=== PATIENT | female | born 1960 | race Caucasian/White ===

== ENCOUNTER → 2016-04-08 | Outpatient (CLI) | payer BC ==
--- NOTE | 2016-04-08 15:43 | BD ---
EXAMINATION TYPE: MG DEXA axial skeleton. DATE OF EXAM: 04/08/2016 8:28 AM COMPARISON: NONE CLINICAL HISTORY: Height: 62.5 IN Weight: 111 LBS FRAX RISK QUESTIONS: Alcohol (3 or more units per day): NO Family History (Parent hip fracture): NO Glucocorticoids (More than 3mos): NO (Ex: prednisone, prednisolone, methylprednisolone, dexamethasone, and hydrocortisone). History of Fracture in Adulthood: NO Secondary Osteoporosis: 1. Type 1 Diabetes: NO 2. Hyperthyroidism: NO 3. Menopause before 45: NO 4. Malnutrition: NO 5. Chronic liver disease: NO Rheumatoid Arthritis: NO Current Tobacco Use: YES RISK FACTORS HISTORY OF: Smoke tobacco: YES Diet low in dairy products/other sources of calcium: YES Postmenopausal woman: YES AGE 50 MEDICATIONS: Additional Medications: LOPRESSOR, EXAM MEASUREMENTS: Bone mineral densitometry was performed using the [employer] System. Bone mineral density as measured about the Lumbar spine is: ----- L1-L4(G/cm2): 1.056 T Score Values are as follows: ----- L2: -0.1 ----- L3: -0.7 ----- L4: -1.6 ----- L1-L4: -1.0 Bone mineral density BASELINE Bone mineral density about the R hip (g/cm2): 0.722 Bone mineral density about the L hip (g/cm2): 0.682 T Score values are as follows: -----R Neck: -2.3 -----L Neck: -2.6 -----R Intertrochanter: -2.0 -----L Intertrochanter: -2.1 Bone mineral density BASELINE IMPRESSION: Osteoporosis (T Score less than -2.5) as noted by T Score values at the There is increased fracture risk and therapy is usually indicated based on age. Re-Screen 1-2 years. LT HIP NOTE: T-SCORE=SD OF THE YOUNG ADULT MEAN.
--- NOTE | 2016-04-09 08:14 | MM ---
Reason for exam: screening (asymptomatic). Last mammogram was performed 7 years and 3 months ago. History: Patient had first child at age 32. Retro-pectoral saline implants in both breasts, July 2004. Benign ultrasound-guided core biopsy of the right breast, February 23, 2002. Core biopsy of the right breast. Took hormonal contraceptives for 13 years beginning at age 18. Physical Findings: A clinical breast exam by your physician is recommended on an annual basis and results should be correlated with mammographic findings. MG Screening Mammo Implant/CAD Bilateral CC, MLO, and ID view(s) were taken. Prior study comparison: December 28, 2008, bilateral diagnostic digital mammog. June 03, 2005, CAD bilateral diagnostic mammogram. The breast tissue is extremely dense which could obscure a lesion on mammography. No significant changes when compared with prior studies. ASSESSMENT: Benign, BI-RAD 2 RECOMMENDATION: Routine screening mammogram of both breasts in 1 year.
== END | disposition home or self-care (01) ==
LOC: RADMAMWWP 07:45
PROVIDERS: ATTEND Obstetrics & Gynecology
DX: Z12.31 Encounter for screening mammogram for malignant neoplasm of breast (principal); M81.0 Age-related osteoporosis without current pathological fracture; N95.1 Menopausal and female climacteric states; Z98.82 Breast implant status
CPT/HCPCS: 77080; G0202

== ENCOUNTER → 2020-01-30 | Outpatient (CLI) | payer BC ==
--- NOTE | 2020-01-30 16:26 | BD ---
EXAMINATION TYPE: Axial Bone Density DATE OF EXAM: 01/30/2020 COMPARISON: 04/08/2016 CLINICAL HISTORY: Height: 62 IN Weight: 102 LBS FRAX RISK QUESTIONS: Current Tobacco Use: YES RISK FACTORS HISTORY OF: Active: YES Diet low in dairy products/other sources of calcium: YES Postmenopausal woman: AGE 50 Take estrogen and/or progesterone medications: NOT NOW How long: TOOK CONTROL AGE [age] MEDICATIONS: Additional Medications: NONE EXAM MEASUREMENTS: Bone mineral densitometry was performed using the [employer] System. Bone mineral density as measured about the Lumbar spine is: ----- L1-L4(G/cm2): 0.993 T Score Values are as follows: ----- L2: -0.6 ----- L3: -1.1 ----- L4: -2.2 ----- L1-L4: -1.6 Bone mineral density has: Decreased -5.6% since study of: 04/08/2016 Bone mineral density about the R hip (g/cm2): 0.679 Bone mineral density about the L hip (g/cm2): 0.637 T Score values are as follows: -----R Neck: -2.6 -----L Neck: -2.9 -----R Total: -2.0 -----L Total: -2.4 Bone mineral density has: Decreased -6.4% since study of: 04/08/2016 IMPRESSION: Osteoporosis (T Score less than -2.5). There is increased fracture risk and therapy is usually indicated based on age. Re-Screen 1-2 years. NOTE: T-SCORE=SD OF THE YOUNG ADULT MEAN.
--- NOTE | 2020-02-01 08:46 | MM ---
Reason for exam: screening (asymptomatic). Last mammogram was performed 3 years and 10 months ago. History: Patient had first child at age 32. Family history of breast cancer in sister at age 63. Retro-pectoral saline implants in both breasts, July 2004. Benign ultrasound-guided core biopsy of the right breast, February 23, 2002. Core biopsy of the right breast. Took hormonal contraceptives for 13 years beginning at age 18. Taking estrogen for 1 month beginning at age 59. Physical Findings: A clinical breast exam by your physician is recommended on an annual basis and results should be correlated with mammographic findings. MG 3D Screen Mammo Imp/Cad Bilateral CC, MLO, and ID view(s) were taken. Prior study comparison: April 08, 2016, bilateral MG screening mammo implant/CAD. The breast tissue is extremely dense which could obscure a lesion on mammography. Retropectoral saline implants. No significant changes when compared with prior studies. ASSESSMENT: Negative, BI-RAD 1 RECOMMENDATION: Routine screening mammogram of both breasts in 1 year.
== END | disposition home or self-care (01) ==
LOC: RADMAMWWP 14:43
PROVIDERS: ATTEND Obstetrics & Gynecology
DX: Z12.31 Encounter for screening mammogram for malignant neoplasm of breast (principal); Z13.820 Encounter for screening for osteoporosis; M81.0 Age-related osteoporosis without current pathological fracture; Z98.82 Breast implant status
CPT/HCPCS: 77063; 77067; 77080

== ENCOUNTER → 2020-02-22 | Outpatient (CLI) | payer BC ==
[2020-02-22 14:22] LABS: Basophils # (A) 0.1 k/uL (0-0.2); Basophils % (A) 1 %; Eosinophils % (A) 1 %; HGB 15.8 gm/dL (11.4-16.0); Lymphocytes # (A) 1.6 k/uL (1.0-4.8); Lymphocytes % (A) 25 %; MCH 32.3 pg (25.0-35.0); MCHC 33.7 g/dL (31.0-37.0); MCV 95.7 fL (80.0-100.0); Mean Platelet Volume 7.6; Monocytes # (A) 0.3 k/uL (0-1.0); Monocytes % (A) 5 %; Neutrophils # (A) 4.3 k/uL (1.3-7.7); Neutrophils % (A) 67 %; Platelet Count 203 k/uL (150-450); RBC 4.91 m/uL (3.80-5.40); RDW 12.1 % (11.5-15.5); WBC 6.5 k/uL (3.8-10.6)
[2020-02-22 14:24] LABS: African American GFR (CKD) >90 (>60 ml/min/1.73 sqM); Anion Gap 7 mmol/L; Appearance,Urine Clear (Clear); Bilirubin,Urine Negative (Negative); Blood Urea Nitrogen 17 mg/dL (7-17); Blood,Urine Moderate (Negative); Calcium 9.7 mg/dL (8.4-10.2); Carbon Dioxide 29 mmol/L (22-30); Chloride 102 mmol/L (98-107); Color,Urine Yellow; Glucose 80 mg/dL (74-99); Glucose,Urine (UA) Negative (Negative); Ketones,Urine Negative (Negative); Leukocyte Esterase,Urine Negative (Negative); Mucus,Urine Many /hpf; Nitrite,Urine Negative (Negative); Non-African American GFR(CKD) >90 (>60 ml/min/1.73 sqM); PH, Urine 5.5 (5.0-8.0); Protein,Urine Trace (Negative); RBC,Urine 13 /hpf (0-5); Sodium 138 mmol/L (137-145); Squamous Epithelial Cell,Urine 3 /hpf (0-4); Urobilinogen,Urine <2.0 mg/dL (<2.0); WBC,Urine <1 /hpf (0-5)
== END | disposition home or self-care (01) ==
LOC: LABPAT 13:41
PROVIDERS: ATTEND Urology
DX: Z01.818 Encounter for other preprocedural examination (principal); N93.9 Abnormal uterine and vaginal bleeding, unspecified; R31.29 Other microscopic hematuria
CPT/HCPCS: 36415; 80048; 81001; 85025; 87086

== ENCOUNTER 2020-02-29 07:27 | Day surgery (SDC) | payer BC ==
[2020-02-27 14:30] VITALS: BMI 17.2
--- NOTE | 2020-02-28 14:04 | P.GSHP ---
History of Present Illness H&P Date: 02/28/20 59 yo female with javan on history, uds and physical exam. SHe had a monarc, tot, in 2004. It no longer works. She comes for repeat bns as urethra is hypermobile andshe has javan. We have chosen a lynx pvs to control the incontinence. The riks, complications including pain, erosin, infection, dyspareunia, imjury to adjacent organs have been explained understood and accepted. The MESH controversy has been discussed. - Constitutional Constitutional: Denies chills, Denies fever - EENT Eyes: denies blurred vision, denies pain Ears, nose, mouth and throat: Denies headache, Denies sore throat - Cardiovascular Cardiovascular: Denies chest pain, Denies shortness of breath - Respiratory Respiratory: Denies cough, Denies 7 - Gastrointestinal Gastrointestinal: Denies abdominal pain, Denies diarrhea, Denies nausea, Denies vomiting - Genitourinary (Female) Genitourinary: Denies dysuria, Denies hematuria - Genitourinary (Male) Genitourinary: Denies dysuria, Denies hematuria - Musculoskeletal Musculoskeletal: Denies myalgias - Integumentary Integumentary: Denies pruritus, Denies rash - Neurological Neurological: Denies numbness, Denies weakness - Psychiatric Psychiatric: Denies anxiety, Denies depression - Endocrine Endocrine: Denies fatigue, Denies weight change Past Medical History Past Medical History: No Reported History History of Any Multi-Drug Resistant Organisms: None Reported Past Surgical History: Bladder Surgery, Tonsillectomy Additional Past Surgical History / Comment(s): BLADDER SURGERY, BILATERAL BREAST AUGMENTATION, Past Anesthesia/Blood Transfusion Reactions: Family History of Problems w/ Anesthesia Additional Past Anesthesia/Blood Transfusion Reaction / Comment(s): SISTER HAS POST OP VOMITING Smoking Status: Current every day smoker - Past Family History Sister(s) Family Medical History: Cancer Additional Family Medical History / Comment(s): BREAST CANCER Medications and Allergies Home Medications Medication Instructions Recorded Confirmed Type Clobetasol Propionate [Temovate 1 applic TOPICAL MOTUWETHSA 02/27/20 02/27/20 History 0.05% Oint] Estradiol Cream [Estrace Cream 1 gm VAGINAL SUFR 02/27/20 02/27/20 History 0.01%] Allergies Allergy/AdvReac Type Severity Reaction Status Date / Time amoxicillin Allergy Rash/Hives Verified 02/27/20 14:11 bupropion [From Wellbutrin] Allergy Rash/Hives,SWELLING Verified 02/27/20 14:11 OF THROAT Surgical - Exam - General well developed, well nourished, no distress - Eyes PERRL - ENT normal mucosa, no hearing loss - Neck no masses, trachea midline - Respiratory normal expansion, normal respiratory effort - Cardiovascular Rhythm: regular - Abdomen Abdomen: soft, non tender - Genitourinary hypermobile urethra with javan normal external genitalia, normal perineum - Integumentary no rash, no growths - Neurologic normal coordination, normal sensation - Musculoskeletal normal gait, normal posture - Psychiatric oriented to time, oriented to person, oriented to place, speech is normal, memory intact Assessment and Plan Assessment: Ikpression: Recurrent javan Plan: Pubovaginal sling with a lynx graft
[~2020-02-29 07:27] MED LIST: DEXAMETHASONE SOD PHOSPHATE 4 MG/ML 1 ML VIAL IV ONE; GENTAMICIN 68 MG in SODIUM CHLORIDE 0.9% 100 ML IVPB PRN; LIDOCAINE 1% (10MG/ML) FOR IV START INTRADERMA PRN; MIDAZOLAM 2 MG/2 ML VIAL IV PRN
[2020-02-29] MEDS ORDERED: ONDANSETRON 4 MG/2 ML VIAL ONE (07:59)
[2020-02-29] MEDS ORDERED: MIDAZOLAM 2 MG/2 ML VIAL ONE (09:26)
[2020-02-29] MEDS ORDERED: fentaNYL (PF) 50 MCG/ML 2 ML AMP ONE (09:26)
[2020-02-29] MEDS ORDERED: PROPOFOL 10 MG/ML 20 ML VIAL IV ONE (09:26)
[2020-02-29] MEDS ORDERED: LIDOCAINE 1% INJ 10MG/ML (20 ML MDV) ONE (09:26)
[2020-02-29] MEDS ORDERED: PHENYLEPHRINE 10 MG/ML VIAL ONE (09:26)
[2020-02-29] MEDS: LACTATED RINGERS 1,000 ML IV SCH ×2 (09:36→19:47)
[2020-02-29] MEDS ORDERED: VASOPRESSIN 20 UNIT in SODIUM CHLORIDE 0.9% 60 ML SQ ONE (09:49)
[2020-02-29] MEDS ORDERED: GENTAMICIN 80 MG in SODIUM CHLORIDE 0.9% 500 ML 500 ML IRRIGATION ONE (09:50)
[2020-02-29] MEDS ORDERED: BACITRACIN ZINC 500 UNIT/GM OINT 28.4 GM TUBE TOPICAL ONE (10:09)
[2020-02-29] MEDS ORDERED: KETOROLAC 15 MG/ML 1 ML VIAL IVP PRN (10:30)
[2020-02-29] MEDS ORDERED: HYDROcodone/APAP 5-325MG 1 EACH TAB PO PRN (10:32)
--- NOTE | 2020-02-29 10:36 | P.OP ---
Date of Procedure: 02/29/20 Preoperative Diagnosis: Recurrent stress urinary incontinence Postoperative Diagnosis: Same Procedure(s) Performed: Pubovaginal sling (Lynx), cystoscopy Anesthesia: RAFI Surgeon: Rodolfo Aldana Estimated Blood Loss (ml): 25 Pathology: none sent Condition: stable Disposition: PACU Indications for Procedure: Patient is 59. She had a Townley, trans-obturator tape, 2004. It is slipped a. She was evaluated and stress incontinence. We'll do a pubovaginal sling (Lynx) with cystoscopy for her incontinence. Description of Procedure: Patient brought to the operating suite. She is given a general endotracheal anesthesia. She's placed lithotomy position with sterile prep and drape. The labor sewn laterally with 2-0 silk. Peoples cath is introduced sterilely. A vaginal speculum was introduced sterilely. The anterior vaginal mucosa was elevated off the submucosa with 20 g of Pitressin in 50 mL of saline. A midline suburethral incision is made. I dissect the vaginal mucosa off the submucosa sharply bilaterally. I identified the graft and the midline and excise a portion of the midline. The bladder neck bilaterally. I make 2 incisions at the corner the pubis. I passed the Lynx introducers retropubically into the vaginal space. I do cystoscopy to make sure there is no injury to the bladder and there is none. I attached the graft to the introducers and pull it back suprapubically and lay at the bladder neck nicely. I inspect the urethra and elevated the graft and it collapsed the urethra nicely. I make sure hemostat easily fit between the urethra and the graft. The redundant sheathing off the graft. Closed the vaginal mucosa with 2-0 Vicryl. I excised redundant graft at the suprapubic incision and close the suprapubic incision with 4-0 Vicryl. A vaginal pack is place. The urine remains clear. The patient awake and returned recovery in good condition. Blood loss is minimal. SHe tolerated procedure well Impression successful pubovaginal sling with cystoscopy.
[2020-02-29] MEDS: HYDROmorphone 0.5 MG/0.5 ML SYRINGE IVP PRN ×3 (10:39→11:03)
[2020-02-29] MEDS ORDERED: MEPERIDINE 50 MG/ML SYRINGE IVP ONE (11:17)
[2020-02-29] MEDS ORDERED: LACTATED RINGERS 1,000 ML IV ONE ×2 (11:24)
[2020-02-29] MEDS: DEXTROSE 5%-0.45% NACL 1,000 ML IV SCH (15:57)
[2020-02-29] MEDS ORDERED: INFLUENZA VACCINE (6 MOS+) 60 MCG/0.5 ML SYRINGE IM ONE (16:00)
[2020-02-29] MEDS: CLOBETASOL PROP 0.05% OINT 15GM TOPICAL SCH (16:13)
[2020-03-01] MEDS: DEXTROSE 5%-0.45% NACL 1,000 ML IV SCH (01:07)
--- NOTE | 2020-03-01 07:17 | P.DS ---
Providers Attending physician: Rodolfo Aldana Primary care physician: Stated None Hospital Course: The patient is 59. She underwent a pubovaginal sling with cystoscopy for recurrent stress urinary incontinence. She had a monarch suspension in 2004. Postoperatively she is done well. There is minimal vaginal discharge. There is minimal discomfort. The catheters removed this morning. If she voids she'll be discharged home. She'll follow in the office in one week. Postoperative instr uctions been given. She'll take time or Motrin for pain. Condition is good. Patient Condition at Discharge: Good Plan - Discharge Summary Discharge Rx Participant: Yes New Discharge Prescriptions: No Action Estradiol Cream [Estrace Cream 0.01%] 1 gm VAGINAL SUFR Clobetasol Propionate [Temovate 0.05% Oint] 1 applic TOPICAL MOTUWETHSA Discharge Medication List Clobetasol Propionate [Temovate 0.05% Oint] 1 applic TOPICAL MOTUWETHSA 02/27/20 [History] Estradiol Cream [Estrace Cream 0.01%] 1 gm VAGINAL SUFR 02/27/20 [History] Follow up Appointment(s)/Referral(s): Rodolfo Aldana MD [STAFF PHYSICIAN] - 1 Week Discharge Disposition: HOME SELF-CARE
[2020-03-01] MEDS: CLOBETASOL PROP 0.05% OINT 15GM TOPICAL SCH (08:50)
[2020-03-01 09:13] VITALS: BP 104/67; PULSE 67; RESP 16; TEMP 98.1
== END 2020-03-01 10:35 | disposition home or self-care (01) ==
LOC: OR 07:27 → 6PED 10:33 → OR 03-01 10:35
PROVIDERS: ATTEND Urology
DX: N39.3 Stress incontinence (female) (male) (principal); Z98.890 Other specified postprocedural states; F17.210 Nicotine dependence, cigarettes, uncomplicated; Z80.3 Family history of malignant neoplasm of breast; Z79.899 Other long term (current) drug therapy; Z88.0 Allergy status to penicillin; Z88.8 Allergy status to other drugs, medicaments and biological substances
CPT/HCPCS: 90686; 57288; C1771; G0008; J1580 ×2; J1100; J2175; J2405; J1885; J1170

== ENCOUNTER → 2021-04-02 | Outpatient (CLI) | payer BC ==
--- NOTE | 2021-04-03 14:17 | MM ---
Reason for exam: screening (asymptomatic). Last mammogram was performed 1 year and 2 months ago. History: Patient had first child at age 32. Family history of breast cancer in sister at age 63. Retro-pectoral saline implants in both breasts, July 2004. Benign ultrasound-guided core biopsy of the right breast, February 23, 2002. Core biopsy of the right breast. Took hormonal contraceptives for 13 years beginning at age 18. Taking estrogen for 1 month beginning at age 59. Physical Findings: A clinical breast exam by your physician is recommended on an annual basis and results should be correlated with mammographic findings. MG 3D Screen Mammo Imp/Cad Bilateral CC, MLO, and ID view(s) were taken. Prior study comparison: January 30, 2020, bilateral MG 3d screen mammo imp/cad. April 08, 2016, bilateral MG screening mammo implant/CAD. The breast tissue is extremely dense which could obscure a lesion on mammography. There is no discrete abnormality. Bilateral subpectoral implants redemonstrated. ASSESSMENT: Benign, BI-RAD 2 RECOMMENDATION: Routine screening mammogram of both breasts in 1 year. Some consider bilateral ultrasound surveillance in patient with extremely dense fibroglandular tissue.
== END | disposition home or self-care (01) ==
LOC: RADMAMWWP 10:52
PROVIDERS: ATTEND Obstetrics & Gynecology
DX: Z12.31 Encounter for screening mammogram for malignant neoplasm of breast (principal); Z80.3 Family history of malignant neoplasm of breast
CPT/HCPCS: 77063; 77067

== ENCOUNTER → 2022-02-07 | Outpatient (CLI) | payer BC ==
--- NOTE | 2022-02-07 12:10 | BD ---
EXAMINATION TYPE: Axial Bone Density DATE OF EXAM: 02/07/2022 COMPARISON: 01/30/2020 CLINICAL HISTORY: 61 years year old Female. ICD-10 CODE: M81.0 AGE-RELATED OSTEOPOROSIS Height: 62 IN Weight: 101 LBS FRAX RISK QUESTIONS: Current Tobacco Use: YES RISK FACTORS HISTORY OF: Active: YES Diet low in dairy products/other sources of calcium: YES Postmenopausal woman: AGE 52 MEDICATIONS: Osteoporosis Medications: NOT NOW Which medication: Fosamax How Lon MONTHS Additional Medications: CALCIUM, VIT D, ASPIRIN, HEART MEDS, EXAM MEASUREMENTS: Bone mineral densitometry was performed using the [employer] System. Bone mineral density as measured about the Lumbar spine is: ----- L1-L4(G/cm2): 0.959 T Score Values are as follows: ----- L1: -2.6 ----- L2: -1.2 ----- L3: -1.4 ----- L4: -2.4 ----- L1-L4: -1.8 Bone mineral density has: Decreased -3.6% since study of: 01/30/2020 Bone mineral density about the R hip (g/cm2): 0.631 Bone mineral density about the L hip (g/cm2): 0.618 T Score values are as follows: -----R Neck: -2.9 -----L Neck: -3.0 -----R Total: -2.4 -----L Total: -2.7 Bone mineral density has: Decreased -5.6% since study of: 01/30/2020 FRAX%s: The graph provided illustrates a 15.7 chance for a major osteoporotic fx and a 7.1 chance for the hips probability for fx in 10 years time. IMPRESSION: Osteoporosis (T Score less than -2.5). There is increased fracture risk and therapy is usually indicated based on age. Re-Screen 1-2 years. NOTE: T-SCORE=SD OF THE YOUNG ADULT MEAN.
== END | disposition home or self-care (01) ==
LOC: RADBDWWP 09:03
PROVIDERS: ATTEND Internal Medicine
DX: M81.0 Age-related osteoporosis without current pathological fracture (principal)
CPT/HCPCS: 77080

== ENCOUNTER → 2022-04-03 | Outpatient (CLI) | payer BC ==
--- NOTE | 2022-04-04 11:11 | MM ---
Reason for Exam: Screening (asymptomatic). Last screening mammogram was performed 12 month(s) ago. Patient History: Menarche at age 13. First Full-Term at age 32. Late child-bearing (after 30). Patient has history of breast feeding. Currently using Estrogen, for 1 month. Hormonal Contraceptives for 13 years from age 18 until age 30. Core Biopsy on the Right side. 02/23/2002, Benign Ultrasound-Guided Core Biopsy on the right side. 07/2004, Bilateral Implants. Sister had breast cancer, age 63. Risk Values: Opal 5 year model risk: 4.3%. NCI Lifetime model risk: 17.4%. Prior Study Comparison: 04/08/2016 Bilateral Screening Mammogram, [facility]. 01/30/2020 Bilateral Screening Mammogram, [facility]. 04/02/2021 Bilateral Screening Mammogram, [facility]. Tissue Density: The breast tissue is heterogeneously dense. This may lower the sensitivity of mammography. Findings: Analyzed By CAD. Bilateral breast implants redemonstrated. Biopsy clip right breast again seen. There is no suspicious new group of microcalcifications or new suspicious mass in either breast. Overall Assessment: Benign, BI-RAD 2 Management: Screening Mammogram of both breasts in 1 year. A clinical breast exam by your physician is recommended on an annual basis and results should be correlated with mammographic findings. Electronically signed and approved by: Raciel Crump M.D.
== END | disposition home or self-care (01) ==
LOC: RADMAMWWP 08:54
PROVIDERS: ATTEND Obstetrics & Gynecology
DX: Z12.31 Encounter for screening mammogram for malignant neoplasm of breast (principal); Z80.3 Family history of malignant neoplasm of breast; Z98.82 Breast implant status; Z98.890 Other specified postprocedural states
CPT/HCPCS: 77063; 77067

== ENCOUNTER → 2023-04-06 | Outpatient (CLI) | payer BC ==
--- NOTE | 2023-04-06 08:22 | MR ---
MR pancreas / mrcp wo/w con: 04/06/2023 7:09 AM INDICATION: 62 years old Female. K83.8 other specified diseases of biliary tract. COMPARISON: Outside institution CT abdomen and pelvis report only February 27, 2023. TECHNIQUE: Multiplanar multisequence MR imaging of the abdomen was performed both before and after th e intravenous administration of gadolinium 4.5 mL Gadavist. MRCP protocol was utilized. Maximum inten sity projection and 3-D images were reconstructed of the biliary tree at a separate independent works tation. FINDINGS: LUNG BASES: Unremarkable. Bilateral breast prosthesis. ABDOMEN: LIVER: Normal morphology. No significant difference of hepatic signal intensity between in and out of phase images. Benign subcentimeter cyst within the periphery of the right hepatic lobe. BILE DUCTS: CBD 4.5 mm. There is no intra or extrahepatic biliary ductal dilatation. There is no calrk ling defect, stricture, obstructing lesion or biliary wall thickening identified. GALLBLADDER: Unremarkable. PANCREAS: No focal lesion identified. The main pancreatic duct in the body and head is within normal caliber measuring 2.4 mm. The caliber of the main pancreatic duct at the tail is mildly prominent kaylyn suring up to 2.8 mm (Series 801, image 36). No abrupt tapering identified. No abnormal contrast enhan cement. SPLEEN: Within normal limits. ADRENAL GLANDS: Unremarkable. KIDNEYS: Within normal limits. No hydronephrosis. BOWEL: Normal caliber. PERITONEUM: No ascites or free air. No fluid collection. VASCULATURE: Infrarenal fusiform abdominal aortic aneurysm measuring up to 3.0 cm. Major abdominal ve ins are patent. RETROPERITONEUM: Within normal limits. LYMPH NODES: Within normal limits. ABDOMINAL WALL: Unremarkable. MUSCULOSKELETAL: No suspicious osseous abnormality. IMPRESSION: 1. There is mild prominence of the main pancreatic duct at its tail measuring up to 2.8 mm. No stric ture, filling defect, wall thickening or obstructing mass lesion. 2. Infrarenal fusiform abdominal aortic aneurysm measuring up to 3.0 cm.
[2023-04-06 12:12] LABS: ALT 74 U/L (8-44); AST 49 U/L (13-35); Albumin 4.3 g/dL (3.8-4.9); Albumin/Globulin Ratio 2.05 Ratio (1.60-3.17); Alkaline Phosphatase 76 U/L (41-126); BUN/Creat Ratio 33.57 Ratio (12.00-20.00); Blood Urea Nitrogen 23.5 mg/dL (9.0-27.0); Calcium 9.7 mg/dL (8.7-10.3); Carbon Dioxide 24.3 mmol/L (21.6-31.8); Chloride 106 mmol/L (96-109); Globulin 2.1 g/dL (1.6-3.3); Glucose 95 mg/dL (70-110); Potassium 4.5 mmol/L (3.5-5.5); Sodium 141 mmol/L (135-145); Total Bilirubin 0.4 mg/dL (0.3-1.2); Total Protein 6.4 g/dL (6.2-8.2)
== END | disposition home or self-care (01) ==
LOC: RADMRIMAIN 05:54
PROVIDERS: ATTEND Internal Medicine Gastroenterology
DX: I71.43 Infrarenal abdominal aortic aneurysm, without rupture (principal); K83.8 Other specified diseases of biliary tract; R74.01 Elevation of levels of liver transaminase levels
CPT/HCPCS: 80053; 74183; A9585

== ENCOUNTER → 2023-04-07 | Outpatient (CLI) | payer BC ==
--- NOTE | 2023-04-08 20:01 | MM ---
Reason for Exam: Screening (asymptomatic). Last screening mammogram was performed 12 month(s) ago. Patient History: Menarche at age 13. First Full-Term at age 32. Late child-bearing (after 30). Postmenopausal. Patient has history of breast feeding. Estrogen for 1 month starting at age 59. Hormonal Contraceptives for 13 years from age 18 until age 30. Core Biopsy on the Right side. 02/23/2002, Benign Ultrasound-Guided Core Biopsy on the right side. 07/2004, Bilateral Implants. Sister had breast cancer, age 63. Risk Values: Opal 5 year model risk: 4.4%. NCI Lifetime model risk: 16.9%. Prior Study Comparison: 01/30/2020 Bilateral Screening Mammogram, [facility]. 04/02/2021 Bilateral Screening Mammogram, [facility]. 04/03/2022 Bilateral MG 3D screen mammo imp/cad., [facility]. Tissue Density: The breast tissue is extremely dense which could obscure a lesion on mammography. Findings: Analyzed By CAD. Bilateral saline implants are demonstrated. There is no suspicious group of microcalcifications or new suspicious mass in either breast. Overall Assessment: Benign, BI-RAD 2 Management: Screening Mammogram of both breasts in 1 year. See note below in regards to patient's increased five-year Opal score. In addition, consideration can be given to supplementary screening with breast ultrasound given the extremely dense breast tissues. Patient should continue monthly self-breast exams. A clinical breast exam by your physician is recommended on an annual basis. This exam should not preclude additional follow-up of suspicious palpable abnormalities. Note on Opal scores and lifetime risk: 1. A Opal score greater than 3% is considered moderate risk. If this is the case, consider specialist referral to assess eligibility for a risk reducing agent. 2. If overall lifetime risk for the development of breast cancer is 20% or higher, the patient may qualify for future screening with alternating mammogram and breast MRI. Electronically signed and approved by: Mitra Garcia M.D. Radiologist
== END | disposition home or self-care (01) ==
LOC: RADMAMWWP 15:01
PROVIDERS: ATTEND Obstetrics & Gynecology
DX: Z12.31 Encounter for screening mammogram for malignant neoplasm of breast (principal); Z80.3 Family history of malignant neoplasm of breast; Z78.0 Asymptomatic menopausal state; Z98.82 Breast implant status
CPT/HCPCS: 77063; 77067

== ENCOUNTER 2023-04-08 05:47 | Day surgery (SDC) | payer BC ==
[2023-04-02 13:00] VITALS: BMI 16.9
[2023-04-08 06:37] VITALS: TEMP 97.7
[2023-04-08] MEDS ORDERED: IV FLUID CONTINUATION 1,000 ML IV ONE (06:52)
[2023-04-08] MEDS ORDERED: fentaNYL (PF) 50 MCG/ML 2 ML AMP ONE (06:57)
[2023-04-08] MEDS: BENZOCAINE SPRAY 1 CAN MUCOUS MEM ONE ×2 (07:00→07:15)
[2023-04-08] MEDS ORDERED: fentaNYL (PF) 50 MCG/1 ML VIAL IVP ONE (07:17)
[2023-04-08] MEDS ORDERED: MIDAZOLAM 2 MG/2 ML VIAL IVP ONE (07:17)
[2023-04-08 07:34] VITALS: RESP 16
--- NOTE | 2023-04-08 07:35 | P.PCN ---
Date of Procedure: 04/08/23 Description of Procedure: Indication: Evaluation of mitral valve Procedure Description: After explaining the procedure to the patient, it's risk and complications, blood pressure, heart rate and O2 saturation were monitored. The throat was sprayed with Cetacaine. Patient received 2 mg intravenous Versed, 50 mcg intravenous fentanyl. The probe was introduced into the esophagus without difficulty. Images were obtained. Following that, the probe was removed. There was no immediate complication. Findings: Left atrial size is normal, left atrial appendage is normal. Left ventricular size and systolic function are normal. The aortic and tricuspid valve are normal. Mild thickening of the posterior mitral valve leaflet was noted with no clear prolapse. Descending thoracic aorta reveals mild atherosclerotic changes. No pericardial effusion was noted. Contrast bubble study revealed no shunting across the interatrial septum with Valsalva maneuver. Doppler: Pulse wave and color Doppler were obtained, and revealed mild mitral and tricuspid regurgitation, there was no evidence of shunting across the interatrial septum. Conclusion: 1. Normal left ventricular size and systolic function 2. Normal appearance of the left atrial appendage 3. Mild thickening of the posterior mitral valve leaflets with mild mitral regurgitation 4. Mild tricuspid regurgitation 5. No shunting across the interatrial septum
[2023-04-08] MEDS ORDERED: SODIUM CHLORIDE 0.9% 1,000 ML IV SCH (07:45)
[2023-04-08 20:02] VITALS: BP 136/69; PULSE 69
[2023-04-09] MEDS ORDERED: METOPROLOL SUCCINATE (ER) 25 MG TAB.ER.24H PO SCH (09:00)
[2023-04-09] MEDS ORDERED: ASPIRIN 81 MG PO SCH (09:00)
[2023-04-09] MEDS ORDERED: ATORVASTATIN 40 MG TAB PO SCH (09:00)
== END 2023-04-08 09:09 | disposition home or self-care (01) ==
LOC: CATHCVL 05:47
PROVIDERS: ATTEND Internal Medicine Interventional Cardiology
DX: I08.1 Rheumatic disorders of both mitral and tricuspid valves (principal); I10 Essential (primary) hypertension; E78.5 Hyperlipidemia, unspecified; Z87.891 Personal history of nicotine dependence; Z88.0 Allergy status to penicillin; Z88.1 Allergy status to other antibiotic agents; Z88.8 Allergy status to other drugs, medicaments and biological substances; Z91.048 Other nonmedicinal substance allergy status
CPT/HCPCS: 93312; 93320; 93325; J2250; J3010

== ENCOUNTER → 2023-11-19 | Outpatient (CLI) | payer MEDICARE, BC ==
--- NOTE | 2023-11-21 07:54 | MR ---
EXAMINATION TYPE: MR MRCP DATE OF EXAM: 11/19/2023 10:06 AM CLINICAL INDICATION: Female, 63 years old with history of K83.8 OTHER SPECIFIED DISEASES OF BILIARY T RACT; PHH, dilated pancreatic duct, follow up COMPARISON: 04/06/2023 TECHNIQUE: Multi planar, T2-weighted imaging with and without fat saturation and chemical shift imag ing was performed of the abdomen. Then, heavily T2 weighted imaging (half-Fourier acquisition single- shot turbo spin-echo) was utilized in order to study the biliary system. Maximum intensity projectio n images were reconstructed from the original data of the biliary tree. 3D images were created on a [employer] work station. No Gadolinium given. FINDINGS: Lower Thorax: No evidence for acute process. Bilateral breast implants. MRCP: * The intrahepatic ducts have a normal appearance. * The extrahepatic ducts have a normal appearance. * The common hepatic duct measures 7 mm in size. Mild tortuosity to the common hepatic duct. * The common bile duct at the level of the pancreatic head measures 5 mm in size. * The pancreatic duct measures 2 mm similar to prior. * The gallbladder appears unremarkable. Abdomen: Liver: No evidence for hepatic steatosis or cirrhosis. Pancreas: No ductal dilation. Tail duct measures up to 2 mm similar to prior. Pancreatic divisum morp hology. No evidence for solid mass. Spleen: Normal for size. Adrenal glands: Unremarkable. Kidneys: No evidence for obstructive uropathy. No suspicious renal masses. Stomach and Bowel: No evidence for bowel wall thickening or evidence for obstruction. Retroperitoneum/Peritoneum: No evidence of pneumoperitoneum or free fluid. Vasculature: No aortic aneurysm. Musculoskeletal: The osseous structures appear intact. Lymph Nodes: No gross evidence for lymphadenopathy. Abdominal wall: Unremarkable. IMPRESSION: 1. The main pancreatic duct is unchanged compared to immediate prior 04/06/2023 measuring 2 mm in the tail 2. No evidence to suggest choledocholithiasis, or biliary ductal dilatation. 3. Pancreatic divisum
== END | disposition home or self-care (01) ==
LOC: RADMRIMAIN 09:00
PROVIDERS: ATTEND Internal Medicine Gastroenterology
DX: K83.8 Other specified diseases of biliary tract
CPT/HCPCS: 74181

== ENCOUNTER → 2024-02-09 | Outpatient (CLI) | payer MEDICARE, BC ==
--- NOTE | 2024-02-10 14:05 | BD ---
EXAMINATION TYPE: Axial Bone Density DATE OF EXAM: 02/09/2024 CLINICAL HISTORY: 63 years old Female. ICD-10 CODE: M81.0 AGE RELATED OSTEOPROSIS , Additional Histo ry: Height: 5 ft 2 in Weight: 96 FRAX RISK QUESTIONS: Alcohol (3 or more units per day): no Family History (Parent hip fracture): no Glucocorticoids (More than 3mos): no (Ex: prednisone, prednisolone, methylprednisolone, dexamethasone, and hydrocortisone). History of Fracture in Adulthood: no Secondary Osteoporosis: 1. Type 1 Diabetes: no 2. Hyperthyroidism: no 3. Menopause before 45: no 4. Malnutrition: no 5. Chronic liver disease: no Rheumatoid Arthritis: no Current Tobacco Use: yes RISK FACTORS HISTORY OF: Surgery to Spine/Hip(right/left)/Wrist (right/left): no MEDICATIONS: Thyroid Medications: none Osteoporosis Medications: none EXAM MEASUREMENTS: Bone mineral densitometry was performed using the Style on Screen System. Bone mineral density as measured about the Lumbar spine is: ----- L1-L4(G/cm2): 0.946 T Score Values are as follows: ----- L1: -2.9 ----- L2: -1.3 ----- L3: -1.4 ----- L4: -2.4 ----- L1-L4: -2.0 Z Score Values are as follows: ----- L1: -0.6 ----- L2: 1.0 ----- L3: 0.9 ----- L4: -0.1 ----- L1-L4: 0.4 Bone mineral density has: decreased -1.4 % since study of: 2021 Bone mineral density about the R hip (g/cm2): 0.606 Bone mineral density about the L hip (g/cm2): 0.588 T Score values are as follows: -----R Neck: -3.1 -----L Neck: -3.2 -----R Total: -2.6 -----L Total: -2.9 Z Score values are as follows: -----R Neck: -1.2 -----L Neck: -1.3 -----R Total: -0.8 -----L Total: -1.1 Bone mineral density has: decreased -3.1 % since study of: 2021 FRAX%s: The graph provided illustrates a 18.2 % chance for a major osteoporotic fx and a 9.4 % chance for the hips probability for fx in 10 years time. IMPRESSION: Osteoporosis (T Score less than -2.5). There is increased fracture risk and therapy is usually indicated based on age. Re-Screen 1-2 years. NOTE: T-SCORE=SD OF THE YOUNG ADULT MEAN. [facility], , 02/10/2024 2:03 PM
== END | disposition home or self-care (01) ==
LOC: RADBDWWP 15:09
PROVIDERS: ATTEND Internal Medicine
DX: M81.8 Other osteoporosis without current pathological fracture (principal); M81.0 Age-related osteoporosis without current pathological fracture
CPT/HCPCS: 77080

== ENCOUNTER → 2024-04-11 | Outpatient (CLI) | payer MEDICARE, BC ==
[2024-04-12 02:38] LABS: ALT 46 U/L (8-44); AST 25 U/L (13-35); Albumin 4.1 g/dL (3.8-4.9); Albumin/Globulin Ratio 1.78 Ratio (1.60-3.17); Alkaline Phosphatase 76 U/L (41-126); BUN/Creat Ratio 22.62 Ratio (12.00-20.00); Blood Urea Nitrogen 18.1 mg/dL (9.0-27.0); Calcium 9.4 mg/dL (8.7-10.3); Carbon Dioxide 23.7 mmol/L (21.6-31.8); Chloride 106 mmol/L (96-109); Chol/HDL Ratio 2.16 Ratio; Globulin 2.3 g/dL (1.6-3.3); Glucose 90 mg/dL (70-110); LDL Cholesterol,Calculated 61.4 mg/dL (0.0-131.0); Potassium 4.6 mmol/L (3.5-5.5); Sodium 140 mmol/L (135-145); Total Bilirubin 0.4 mg/dL (0.3-1.2); Total Protein 6.4 g/dL (6.2-8.2)
== END | disposition home or self-care (01) ==
LOC: LABWHC1 09:11
PROVIDERS: ATTEND Internal Medicine Interventional Cardiology
DX: E78.2 Mixed hyperlipidemia (principal)
CPT/HCPCS: 36415; 80053; 80061

== ENCOUNTER → 2024-08-24 | Outpatient (CLI) | payer MEDICARE, BC ==
[2024-08-24] MEDS: DENOSUMAB 60 MG/ML 1 ML SYRINGE SQ NR (12:54)
[2024-08-24 13:01] VITALS: BP 111/77; PULSE 84; RESP 16; TEMP 98.6
== END ==
LOC: PROCWHC3 12:26
PROVIDERS: ATTEND Internal Medicine
DX: M81.0 Age-related osteoporosis without current pathological fracture (principal)
CPT/HCPCS: 96372; J0897

== ENCOUNTER → 2024-08-30 | Outpatient (CLI) | payer MEDICARE, BC ==
[2024-08-30 15:06] LABS: Basophils # (A) 0.06 X 10*3/uL (0.00-0.10); Basophils % (A) 0.6 %; Eosinophils # (A) 0.05 X 10*3/uL (0.04-0.35); Eosinophils % (A) 0.5 %; HGB 15.9 g/dL (12.0-15.0); Lymphocytes % (A) 19.5 %; MCH 30.9 pg (27.0-32.0); MCHC 32.4 g/dL (32.0-37.0); MCV 95.3 FL (80.0-97.0); Mean Platelet Volume 11.3 FL (9.5-12.2); Monocytes # (A) 0.84 X 10*3/uL (0.20-1.00); Monocytes % (A) 9.1 %; NRBC Per 100 WBC 0 X 10*3/uL (0.00-0.01); Neutrophils # (A) 6.46 X 10*3/uL (1.80-7.70); Platelet Count 256 X 10*3/uL (140-440); RBC 5.14 X 10*6/uL (4.10-5.20); RDW 13.2 % (11.5-14.5); WBC 9.24 X 10*3/uL (4.50-10.00)
[2024-08-30 15:28] LABS: Creatine Kinase 116 U/L (26-186)
[2024-08-30 15:29] LABS: BUN/Creat Ratio 22.25 Ratio (12.00-20.00); Blood Urea Nitrogen 17.8 mg/dL (9.0-27.0); Carbon Dioxide 26.4 mmol/L (21.6-31.8); Chloride 100 mmol/L (96-109); Chol/HDL Ratio 2.02 Ratio; Glucose 86 mg/dL (70-110); LDL Cholesterol,Calculated 60.4 mg/dL (0.0-131.0); Magnesium 1.7 mg/dL (1.5-2.4); Potassium 4.2 mmol/L (3.5-5.5); Sodium 138 mmol/L (135-145); Uric Acid 5.3 mg/dL (2.9-7.7); VLDL Calculation 14.02 mg/dL (5.00-40.00)
[2024-08-30 15:30] LABS: ALT 58 U/L (8-44); AST 43 U/L (13-35); Albumin 4.4 g/dL (3.8-4.9); Albumin/Globulin Ratio 1.91 Ratio (1.60-3.17); Alkaline Phosphatase 67 U/L (41-126); Calcium 9.9 mg/dL (8.7-10.3); Globulin 2.3 g/dL (1.6-3.3); Total Bilirubin 0.7 mg/dL (0.3-1.2); Total Protein 6.7 g/dL (6.2-8.2)
[2024-08-30 16:16] LABS: Appearance,Urine Turbid (Clear); Bilirubin,Urine Small (Negative); Blood,Urine Small (Negative); Color,Urine Dark Yellow (Yellow); Ketones,Urine Trace (Negative); Nitrite,Urine Negative (Negative); Specific Gravity,Urine 1.029 (1.001-1.030)
[2024-08-30 16:22] LABS: Bacteria,Urine 3+ (None Seen)
== END | disposition home or self-care (01) ==
LOC: LABWHC1 08:19
DX: I10 Essential (primary) hypertension (principal); E78.2 Mixed hyperlipidemia
CPT/HCPCS: 36415; 80053; 80061; 81001; 82550; 83036; 83735; 84443; 84550; 85025

== ENCOUNTER → 2024-09-02 | Outpatient (CLI) | payer MEDICARE, BC ==
--- NOTE | 2024-09-02 09:31 | MM ---
Reason for Exam: Screening (asymptomatic). Last mammogram was performed 1 year(s) and 5 month(s) ago. Patient History: Menarche at age 13. First Full-Term at age 32. Late child-bearing (after 28). Postmenopausal. Patient has history of breast feeding. Estrogen for 1 month starting at age 59. Hormonal Contraceptives for 13 years from age 18 until age 30. Core Biopsy on the Right side. 02/23/2002, Benign Ultrasound-Guided Core Biopsy on the right side. 07/2004, Bilateral Implants. Sister had breast cancer, age 63. Risk Values: Opal 5 year model risk: 4.6%. NCI Lifetime model risk: 15.8%. Prior Study Comparison: 04/02/2021 Bilateral Screening Mammogram, [facility]. 04/03/2022 Bilateral MG 3D screen mammo imp/cad., [facility]. 04/07/2023 Bilateral MG 3D screen mammo imp/cad., [facility]. Tissue Density: The breasts are heterogeneously dense, which may obscure small masses. Findings: Analyzed By CAD. Bilateral breast implants appear intact. Right breast: There is no suspicious group of microcalcifications or new suspicious mass. Left breast: There is no suspicious group of microcalcifications or new suspicious mass. Overall Assessment: Negative, BI-RAD 1 Management: Screening Mammogram of both breasts in [address] [facility] will attempt to contact patient to return for supplemental views and ultrasound if indicated. Patient should continue monthly self-breast exams. A clinical breast exam by your physician is recommended on an annual basis. This exam should not preclude additional follow-up of suspicious palpable abnormalities. Note on Opal scores and lifetime risk: 1. A Opal score greater than 3% is considered moderate risk. If this is the case, consider specialist referral to assess eligibility for a risk reducing agent. 2. If overall lifetime risk for the development of breast cancer is 20% or higher, the patient may qualify for future screening with alternating mammogram and breast MRI. [facility], , 09/02/2024 9:28 AM. Electronically signed and approved by: Kit Rodas DO
== END | disposition home or self-care (01) ==
LOC: RADMAMWWP 07:45
PROVIDERS: ATTEND Internal Medicine
DX: Z12.31 Encounter for screening mammogram for malignant neoplasm of breast (principal); R92.333 Mammographic heterogeneous density, bilateral breasts; Z78.0 Asymptomatic menopausal state; Z80.3 Family history of malignant neoplasm of breast; Z92.0 Personal history of contraception; Z98.82 Breast implant status
CPT/HCPCS: 77063; 77067